=== PATIENT | male | born 1995 ===

== ENCOUNTER 2016-12-27 09:43 | Emergency (ER) | payer OTHER ==
[2016-12-27 10:09] VITALS: BP 121/67; PULSE 60; RESP 16; TEMP 98.7; O2SAT 98
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
== END 2016-12-27 10:45 | disposition home or self-care (01) ==
LOC: H.ER 09:43
DX: Z48.02 Encounter for removal of sutures (principal)